=== PATIENT | male | born 1960 ===

== ENCOUNTER 2021-10-19 05:51 | Day surgery (SDC) | payer OTHER | END 2021-10-19 13:30 | disposition home or self-care (01) | LOC: CIR.AMB 05:51 | PROVIDERS: ATTEND Surgery | DX: D17.22 Benign lipomatous neoplasm of skin and subcutaneous tissue of left arm (principal); J45.909 Unspecified asthma, uncomplicated; N40.0 Benign prostatic hyperplasia without lower urinary tract symptoms ==